=== PATIENT | female | born 1990 | race Caucasian/White ===

== ENCOUNTER 2022-04-18 16:30 | Emergency (ER) | payer OTHER ==
[~2022-04-18] VITALS: Ht 170.2 cm; Wt 70.8 kg
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
[2022-04-18] MEDS ORDERED: LIDO30AD10 TP (18:54)
--- NOTE | 2022-04-18 19:23 | NUR ---
Patient discharged to home in stable condition. Written and verbal after care instructions given. Patient verbalizes understanding of instruction.
[2022-04-18 19:24] VITALS: BP 129/81
== END 2022-04-18 19:25 | disposition home or self-care (01) ==
LOC: ER 16:35
DX: S00.83XA Contusion of other part of head, initial encounter (principal); N64.4 Mastodynia; M25.552 Pain in left hip; E78.5 Hyperlipidemia, unspecified; V89.2XXA Person injured in unspecified motor-vehicle accident, traffic, initial encounter; Y93.89 Activity, other specified; Y92.89 Other specified places as the place of occurrence of the external cause; Y99.8 Other external cause status
CPT/HCPCS: 73502; 76642-LT-TC; 84703-TC